=== PATIENT | female | born 1965 | race Caucasian/White ===

== ENCOUNTER → 2017-05-10 | Outpatient (CLI) | payer MEDICARE, OTHER ==
--- NOTE | 2017-05-10 12:52 | XR ---
EXAMINATION TYPE: XR shoulder limited LT DATE OF EXAM: 05/10/2017 COMPARISON: NONE HISTORY: Pain TECHNIQUE: Two views are submitted. FINDINGS: The osseous structures are intact. There is no acute fracture or dislocation. Mild arthropathy of th e AC joint.. IMPRESSION: 1. No acute process.
== END | disposition home or self-care (01) ==
LOC: RADXRMAIN 12:20
PROVIDERS: ATTEND Family Medicine
DX: M75.102 Unspecified rotator cuff tear or rupture of left shoulder, not specified as traumatic (principal)

== ENCOUNTER → 2017-06-12 | Outpatient (CLI) | payer MEDICARE, OTHER ==
--- NOTE | 2017-06-12 12:58 | MR ---
EXAMINATION TYPE: MR shoulder LT wo con DATE OF EXAM: 06/12/2017 COMPARISON: Plain film 05/10/2017 HISTORY: Left shoulder pain TECHNIQUE: Multiplanar, multisequence imaging of the left shoulder is performed without contrast. FINDINGS: Rotator Cuff: There is a rotator cuff tear, supraspinatus tendon shows retraction the level of the ac romioclavicular joint, the tendon is attenuated, infraspinatus tendon is also somewhat attenuated per ipherally with abnormal increased signal present, possible partial tear. Acromioclavicular Joint: Acromioclavicular joint arthropathy changes present. Glenohumeral Joint: Intact Labrum: There is some increased signal present within the acetabular labrum seen best on coronal imag e 14 superiorly. Biceps Tendon: Fluid signal is present along the long head of biceps tendon which shows a normal posi tion. Bone marrow signal: No focal abnormal marrow signal is appreciated. Other: There is an acromial spur distally and also at the proximal aspect of the acromion causing mas s effect on the supraspinatus tendon. There is fluid in the subacromial subdeltoid bursa, subscapular is tendon, there is a small joint effusion. IMPRESSION: Rotator cuff tear. Correlate for impingement. Difficult to exclude a SLAP lesion. Additional findings above.
== END | disposition home or self-care (01) ==
LOC: RADMRIMAIN 11:45
PROVIDERS: ATTEND Family Medicine
DX: M75.102 Unspecified rotator cuff tear or rupture of left shoulder, not specified as traumatic (principal); M12.812 Other specific arthropathies, not elsewhere classified, left shoulder; R22.32 Localized swelling, mass and lump, left upper limb

== ENCOUNTER → 2017-06-17 | Outpatient (CLI) | payer MEDICARE, OTHER ==
--- NOTE | 2017-06-19 09:04 | MM ---
Reason for exam: screening (asymptomatic). Last mammogram was performed 1 year and 4 months ago. Physical Findings: A clinical breast exam by your physician is recommended on an annual basis and results should be correlated with mammographic findings. MG 3D Screening Mammo W/Cad Bilateral CC and MLO view(s) were taken. Prior study comparison: February 03, 2016, bilateral MG 3d screening mammo w/cad. August 03, 2013, bilateral MG screening mammo w CAD. There are scattered fibroglandular densities. Finding: There are typically benign round, diffuse/scattered calcifications in both breasts. No significant changes in finding since February 03, 2016 and August 03, 2013. ASSESSMENT: Benign, BI-RAD 2 RECOMMENDATION: Routine screening mammogram of both breasts in 1 year.
== END | disposition home or self-care (01) ==
LOC: RADMAMWWP 12:39
PROVIDERS: ATTEND Family Medicine
DX: Z12.31 Encounter for screening mammogram for malignant neoplasm of breast (principal)
CPT/HCPCS: 77063; 77067

== ENCOUNTER 2017-08-01 05:46 | Day surgery (SDC) | payer MEDICARE, OTHER ==
[2017-07-29 13:50] VITALS: BMI 34.9
--- NOTE | 2017-07-31 16:17 | HP ---
HISTORY AND PHYSICAL DATE OF SURGERY: 08/01/2017 Zoya Momin is a 51-year-old patient seen with progressive left shoulder pain. We discussed treatment options and she elected to proceed with left shoulder arthroscopy. Consent regarding procedure was obtained. Medical clearance was provided by Dr. Bose. PAST MEDICAL HISTORY: 1. Hypertension. 2. Imh-nwohydo-whgpaivim diabetes. 3. Hyperlipidemia. 4. Gastroesophageal reflux disease. PAST SURGICAL HISTORY: Left knee arthroscopy. DAILY MEDICATIONS: 1. Lexapro. 2. Lisinopril. 3. Simvastatin. 4. Wellbutrin. 5. Metformin. 6. Nexium. ALLERGIES: IBUPROFEN. SOCIAL HISTORY: Patient denies current tobacco use. PHYSICAL EVALUATION OF THE LEFT SHOULDER: Flexion is 90 degrees, abduction 70 degrees. External rotation is 20 degrees with pain and weakness. There is tenderness along the anterolateral acromion at the rotator cuff insertion site. Impingement sign is positive at 90 degrees. Distal neurovascular exam is intact. Drop-arm sign is positive. IMAGING: X-rays of the left shoulder revealed a type 2 anterior acromion, acromioclavicular joint osteoarthritis and cystic changes of the greater tuberosity. MRI of the left shoulder revealed a retracted rotator cuff tendon tear. IMPRESSION: 1. Left shoulder impingement with rotator cuff tear. 2. Left shoulder acromioclavicular joint osteoarthritis. 3. Hypertension. 4. Hyperlipidemia. 5. Qcq-mvzgruk-jsamxarrk diabetes. PLAN: Left shoulder arthroscopy, subacromial decompression, probable arthroscopic rotator cuff repair, possible Bert procedure and debridement. MMODL / IJN: [id number] /
[~2017-08-01 05:46] MED LIST: LACTATED RINGERS 1,000 ML IV SCH; LIDOCAINE 1% 20 ML VIAL (10MG/ML) FOR IV START INTRADERMA PRN; ceFAZolin IN SWFI 2 GM/20 ML SYRINGE IVP ONE
[2017-08-01] MEDS ORDERED: DEXAMETHASONE SOD PHOSPHATE 10 MG/ML 1 ML VIAL IV ONE (05:48)
[2017-08-01] MEDS ORDERED: ONDANSETRON 4 MG/2 ML VIAL IVP ONE (05:48)
[2017-08-01] MEDS ORDERED: LACTATED RINGERS 1,000 ML IV SCH (05:48)
[2017-08-01] MEDS ORDERED: MIDAZOLAM 2 MG/2 ML VIAL IV PRN (05:48)
[2017-08-01] MEDS ORDERED: MORPHINE SULFATE 4 MG/ML SYRINGE IV PRN (05:48)
[2017-08-01 07:11] LABS: Glucose,Whole Blood 164 mg/dL (75-99)
--- NOTE | 2017-08-01 07:13 | P.ONQ ---
Anesthesiology Proc Note - PNB - Peripheral Nerve Block Performed Left Interscalene Single Time Out Performed: Yes (0653) Procedure Start Time: 07:00 Procedure Stop Time: 07:10 Indication: Acute Post-Operative Pain, Dx/Pain Location (Left Shoulder Pain), Requested by physician Sedation Type: Awake Preparation: Sterile Prep Position: Supine Catheter: None Needle Types: On-Q Needle Size: 50mm (2") Technique: Ultrasound Injectate: 0.5% Ropivacaine (see comment for volume) (30 ml) Blood Aspirated: No Pain Paresthesia on Injection Noted: No Resistance on Injection: Normal Events: Uneventful and Well Tolerated
[2017-08-01] MEDS ORDERED: MIDAZOLAM 2 MG/2 ML VIAL ONE (07:25)
[2017-08-01] MEDS ORDERED: ROPIVACAINE 5 MG/ML 30 ML VIAL ONE (07:25)
[2017-08-01] MEDS ORDERED: LIDOCAINE 2%-EPI 1:100,000 20 ML VIAL ONE (07:25)
[2017-08-01] MEDS ORDERED: ePHEDrine SULFATE/0.9% NACL/PF 50 MG/5 ML SYRINGE IV ONE (07:25)
[2017-08-01] MEDS ORDERED: SUCCINYLCHOLINE CHLORIDE 100 MG/5 ML SYR IV ONE (07:25)
[2017-08-01] MEDS ORDERED: fentaNYL (PF) 50 MCG/ML 2 ML AMP ONE (07:25)
[2017-08-01] MEDS ORDERED: LIDOCAINE 1% INJ 10MG/ML (20 ML MDV) ONE (07:25)
[2017-08-01] MEDS ORDERED: PROPOFOL 10 MG/ML 20 ML VIAL IV ONE (07:25)
[2017-08-01] MEDS ORDERED: PHENYLEPHRINE-0.9% NACL SYG 1 MG/10 ML SYRINGE ONE (07:25)
[2017-08-01] MEDS ORDERED: LACTATED RINGERS 1,000 ML IV ONE ×2 (08:38→10:07)
--- NOTE | 2017-08-01 09:35 | P.OP ---
Date of Procedure: 08/01/17 Preoperative Diagnosis: Left shoulder impingement Postoperative Diagnosis: 1. Left shoulder rotator cuff tear 2. Left shoulder impingement 3. Left shoulder partial long head biceps tendon tear 4. Left shoulder superior labral tear Procedure(s) Performed: 1. Left shoulder arthroscopic rotator cuff repair 2. Left shoulder arthroscopic subacromial decompression 3. Left shoulder arthroscopic biceps tenotomy 4. Left shoulder arthroscopic debridement labral tear Implants: 5-Arthrex anchors Anesthesia: GETA, regional (Interscalene block) Surgeon: Catarino Alexandre Estimated Blood Loss (ml): 15 Pathology: none sent Condition: stable Disposition: PACU Indications for Procedure: 51-year-old patient seen with progressive left shoulder pain. After treatment options were discussed, she elected to proceed with arthroscopy. Operative Findings: See description of procedure Description of Procedure: Patient underwent a shoulder block by department of anesthesia. The patient was then taken to the operative suite. The patient underwent a general anesthetic by the department of anesthesia. The patient was placed into a lateral position and secured. There was appropriate padding of the bony prominence. Left shoulder was then prepped and draped in normal sterile orthopedic fashion. We placed the extremity in 10 pounds of longitudinal traction. A posterior incision was now made for a posterior working portal site. The trocar and cannula were inserted into the glenohumeral joint. Arthroscopy was initiated. Spinal needle was now inserted anteriorly, to ascertain the anterior working portal site. An incision was now made in that area, a trocar was inserted followed by a probe. There was some superficial tearing of the superior labrum. There was partial tearing of long head biceps tendon. Her was grade 1/2 chondromalacia of the glenoid and grade 1 chondral malacia changes of the humeral head with no osteochondral tears. We noted a very large rotator cuff tear visualized from glenohumeral side. I debrided that superficial labral tear down to stable tissue. I performed an arthroscopic biceps tenotomy. The residual labrum was stable. Instruments now removed from the glenohumeral joint. Utilizing the posterior working portal site, the trocar and cannula were inserted into the subacromial space. Arthroscopy initiated. I made an incision 2 fingerbreadths lateral to the acromion. I introduced my trocar followed by my ArthroCare ablator. I now began ablating thick subacromial bursal tissue, which exposed the undersurface of the anterior acromion. This was diminished subacromial space. There was a very prominent anterior acromion. A motorized bur was introduced and a subacromial decompression was performed. I also excised some osteophytes off the inferior aspect of the distal clavicle. The AC joint was visualized and noted to be mildly to moderately arthritic, not enough toward a Bert procedure. I turned my attention to the rotator cuff tear. There was about 3 cm in length and retracted about 1.5 cm. I was able heat treat puller the footprint. I debrided the margins getting down to stable tendon tissue. I abraded the footprint with a motorized bur. I created an child development instructor he portal site off the lateral acromion. I now introduced 2 medial anchors with 2 suturesfiber tape each. I now passed all 8 limbs of the fiber tape through good bites of rotator cuff tendon. We now crisscrossed the sutures and noted there was good be a couple of dogears. I passed 3 fiber links to address those redundant areas of rotator cuff tendon tissue. We now crisscrossed the sutures and introduced 2 lateral anchors compressing the atenolol footprint nicely. I introduced 1 lateral anchor to pull those residual redundant areas of tissue down as well. All residual suture limbs were clipped. We had a good stable repair with good compression of the tendon along the entire footprint. I injected 1 mL of Renue intra-articular. Instruments now removed from the portal sites. All portal sites were approximated with nylon suture. Sterile dressings were applied followed by a shoulder immobilizer. 5 Arthrex SwiveLock anchors were utilized as implants. The patient was awakened, transferred to a bed, and taken to recovery in stable condition.
[2017-08-01 09:38] VITALS: TEMP 97.7
[2017-08-01 10:00] VITALS: RESP 16
[2017-08-01 10:33] VITALS: BP 117/68; PULSE 114
== END 2017-08-01 11:04 | disposition home or self-care (01) ==
LOC: OR 05:46
PROVIDERS: ATTEND Orthopaedic Surgery
DX: M75.42 Impingement syndrome of left shoulder (principal); M19.012 Primary osteoarthritis, left shoulder; I10 Essential (primary) hypertension; E78.5 Hyperlipidemia, unspecified; E11.9 Type 2 diabetes mellitus without complications; M75.102 Unspecified rotator cuff tear or rupture of left shoulder, not specified as traumatic; S43.492A Other sprain of left shoulder joint, initial encounter; S46.112A Strain of muscle, fascia and tendon of long head of biceps, left arm, initial encounter; M94.212 Chondromalacia, left shoulder; F32.9 Major depressive disorder, single episode, unspecified; K21.9 Gastro-esophageal reflux disease without esophagitis; Z79.84 Long term (current) use of oral hypoglycemic drugs; Z88.6 Allergy status to analgesic agent; Z79.899 Other long term (current) drug therapy
CPT/HCPCS: 81025; 29826; 29827; 29822; 64415; C1713 ×3; C1894; C1765; J2250; J1100; J2405; J2001; J3010; J2795; J2370; J0330; J2704; J0690

== ENCOUNTER → 2018-01-17 | Outpatient (CLI) | payer MEDICARE, OTHER | LOC: LABWHC1 12:43 | PROVIDERS: ATTEND Family Medicine | DX: D68.52 Prothrombin gene mutation (principal) | CPT/HCPCS: 36415; 83090 ==

== ENCOUNTER → 2018-08-26 | Outpatient (CLI) | payer MEDICARE, OTHER ==
--- NOTE | 2018-08-27 13:25 | MM ---
Reason for exam: screening (asymptomatic). Last mammogram was performed 1 year and 2 months ago. Physical Findings: A clinical breast exam by your physician is recommended on an annual basis and results should be correlated with mammographic findings. MG 3D Screening Mammo W/Cad Bilateral CC and MLO view(s) were taken. Prior study comparison: June 17, 2017, bilateral MG 3d screening mammo w/cad. February 03, 2016, bilateral MG 3d screening mammo w/cad. The breast tissue is heterogeneously dense. This may lower the sensitivity of mammography. Finding: There are typically benign calcifications in both breasts. No suspicious abnormality. No significant new finding when compared to prior studies. ASSESSMENT: Benign, BI-RAD 2 RECOMMENDATION: Routine screening mammogram of both breasts in 1 year.
== END | disposition home or self-care (01) ==
LOC: RADMAMWWP 09:44
PROVIDERS: ATTEND Family Medicine
DX: Z12.31 Encounter for screening mammogram for malignant neoplasm of breast (principal)
CPT/HCPCS: 77063; 77067

== ENCOUNTER → 2018-09-16 | Outpatient (CLI) | payer MEDICARE, OTHER ==
--- NOTE | 2018-09-16 14:55 | US ---
EXAMINATION TYPE: US pelvis complete transvag DATE OF EXAM: 09/16/2018 COMPARISON: 90 191 CLINICAL HISTORY: N92.6 Irregular Mensies. Heavier, irregular cycles, known fibroid, A1, c-sectio n TECHNIQUE: TA/TV. Transabdominal sonographic images of the pelvis were acquired. Transvaginal sono graphic images were medically necessary to better assess the following anatomy: all of pelvis Date of LMP: ?July EXAM MEASUREMENTS: Uterus: 8.8 x 6.1 x 5.4 cm Endometrial Stripe: 0.4 cm Right Ovary: 2.2 x 1.5 x 1.7 cm Left Ovary: 1.7 x 1.3 x 1.3 cm 1. Uterus: Retroverted large fundal fibroid = 6.0 x 5.5 x 5.3cm 2. Endometrium: wnl 3. Right Ovary: wnl 4. Left Ovary: wnl 5. Bilateral Adnexa: wnl 6. Posterior cul-de-sac: wnl IMPRESSION: 1. There is a 6 cm uterine fundal mass most typical of a fibroid. Similar in appearance to the prior exam.
== END | disposition home or self-care (01) ==
LOC: RADUSWWP 14:10
PROVIDERS: ATTEND Family Medicine
DX: D25.9 Leiomyoma of uterus, unspecified (principal)
CPT/HCPCS: 76830; 76856

== ENCOUNTER → 2020-09-06 | Outpatient (CLI) | payer MEDICARE, OTHER ==
--- NOTE | 2020-09-06 16:25 | XR ---
Right knee HISTORY:M25.561 3 views of the right knee There is some marginal spurring, remodeling at the medial compartment. Bone mineralization and alignm ent are maintained. Suprapatellar increased density may be indicative of a small joint effusion. Ther e is spurring at the patellofemoral joint. No fracture or dislocation. IMPRESSION: Osteoarthritis.
== END | disposition home or self-care (01) ==
LOC: RADXRMAIN 15:22
PROVIDERS: ATTEND Family Medicine
DX: M17.11 Unilateral primary osteoarthritis, right knee (principal)

== ENCOUNTER → 2020-10-04 | Outpatient (CLI) | payer MEDICARE, OTHER ==
--- NOTE | 2020-10-05 10:51 | MM ---
Reason for exam: screening (asymptomatic). Last mammogram was performed 2 years and 1 month ago. History: Patient is postmenopausal. Physical Findings: A clinical breast exam by your physician is recommended on an annual basis and results should be correlated with mammographic findings. MG 3D Screening Mammo W/Cad Bilateral CC and MLO view(s) were taken. Prior study comparison: August 26, 2018, bilateral MG 3d screening mammo w/cad. June 17, 2017, bilateral MG 3d screening mammo w/cad. The breast tissue is heterogeneously dense. This may lower the sensitivity of mammography. Stable benign calcifications. There is no discrete abnormality. No significant changes when compared with prior studies. ASSESSMENT: Benign, BI-RAD 2 RECOMMENDATION: Routine screening mammogram of both breasts in 1 year.
== END | disposition home or self-care (01) ==
LOC: RADMAMWWP 13:59
PROVIDERS: ATTEND Family Medicine
DX: Z12.31 Encounter for screening mammogram for malignant neoplasm of breast (principal); Z78.0 Asymptomatic menopausal state
CPT/HCPCS: 77063; 77067

== ENCOUNTER → 2021-07-31 | Outpatient (CLI) | payer MEDICARE, OTHER | END | disposition home or self-care (01) | LOC: LABPAT 09:32 | PROVIDERS: ATTEND Orthopaedic Surgery | DX: Z01.812 Encounter for preprocedural laboratory examination (principal); M17.11 Unilateral primary osteoarthritis, right knee | CPT/HCPCS: 87070 ==

== ENCOUNTER 2021-08-07 07:45 | Day surgery (SDC) | payer MEDICARE, OTHER ==
[2021-08-03 14:18] VITALS: BMI 31.8
--- NOTE | 2021-08-06 13:52 | HP ---
HISTORY AND PHYSICAL DATE OF SURGERY: 08/07/2021 Zoya Cowan is a 55-year-old patient seen with symptomatic right knee osteoarthritis. We discussed options for treatment. She elected to proceed with right total knee arthroplasty. Consent was obtained. PAST MEDICAL HISTORY: Hypertension, hyperlipidemia, nmc-uahtsvo-ntodaswwp diabetes. PAST SURGICAL HISTORY: Knee arthroscopy, tonsillectomy, shoulder arthroscopy, section. DAILY MEDICATIONS: Lexapro, lisinopril/hydrochlorothiazide, simvastatin, metformin, aspirin, Nexium. ALLERGIES: IBUPROFEN. SOCIAL HISTORY: She denies tobacco use. PHYSICAL EVALUATION OF THE RIGHT KNEE: Her range of motion is negative 1/2 to 115 degrees. Mild effusion. Tenderness, medial joint line. Crepitus, medial and patellofemoral compartments with range of motion. Pain with patellofemoral compression. Ligaments stable. Hip rotation without pain. Distal neurovascular exam intact. Right knee radiographs reveal severe osteoarthritic changes. IMPRESSION: 1. Right knee osteoarthritis. 2. Hypertension. 3. Hyperlipidemia. 4. Eyn-ocqudps-jbnmyurce diabetes. PLAN: Right total knee arthroplasty. MMODL / IJN: [id number] /
[~2021-08-07 07:45] MED LIST changes: +ACETAMINOPHEN TAB 500 MG TAB PO PRN; +HYDROmorphone 0.5 MG/0.5 ML SYRINGE IVP PRN; +LIDOCAINE 1% (10MG/ML) FOR IV START INTRADERMA PRN; -LIDOCAINE 1% 20 ML VIAL (10MG/ML) FOR IV START INTRADERMA PRN; +MELOXICAM 7.5 MG TAB PO PRN; +ONDANSETRON 4 MG/2 ML VIAL IVP ONE; +TRANEXAMIC ACID IN NACL,ISO-OS 1,000 MG in SALINE 1 100ML.BAG IVPB PRN; -ceFAZolin IN SWFI 2 GM/20 ML SYRINGE IVP ONE
[2021-08-07 09:08] LABS: Glucose,Whole Blood 109 mg/dL (75-99)
[2021-08-07] MEDS ORDERED: DEXAMETHASONE SOD PHOSPHATE 4 MG/ML 1 ML VIAL IV ONE (09:17)
[2021-08-07] MEDS ORDERED: fentaNYL (PF) 50 MCG/ML 2 ML AMP IV ONE ×2 (09:37→09:42)
[2021-08-07] MEDS ORDERED: MIDAZOLAM 2 MG/2 ML VIAL IV ONE (09:37)
[2021-08-07] MEDS ORDERED: PHENYLEPHRINE-0.9% NACL SYG 1,000 MCG/10 ML SYRINGE ONE (10:00)
[2021-08-07] MEDS ORDERED: GLYCOPYRROLATE 0.2 MG/ML 2 ML VIAL ONE (10:00)
[2021-08-07] MEDS ORDERED: ROPIVACAINE 5 MG/ML 30 ML VIAL ONE (10:00)
[2021-08-07] MEDS ORDERED: LIDOCAINE 2% INJ 20 MG/ML (2 ML VIAL) ONE (10:00)
[2021-08-07] MEDS ORDERED: SUCCINYLCHOLINE CHLORIDE 100 MG/5 ML SYR IV ONE (10:00)
[2021-08-07] MEDS ORDERED: NEOSTIGMINE 1 MG/ML 10 ML VIAL ONE (10:00)
[2021-08-07] MEDS ORDERED: SODIUM CHLORIDE 0.9% (PF) 10 ML VIAL ONE (10:00)
[2021-08-07] MEDS ORDERED: fentaNYL (PF) 50 MCG/ML 2 ML AMP ONE (10:00)
[2021-08-07] MEDS ORDERED: TRANEXAMIC ACID IN NACL,ISO-OS 1,000 MG/100 ML BAG ONE (10:00)
[2021-08-07] MEDS ORDERED: PROPOFOL 10 MG/ML 20 ML VIAL IV ONE (10:00)
[2021-08-07] MEDS ORDERED: ceFAZolin 1,000 MG in SODIUM CHLORIDE 0.9% 1,000 ML IRRIGATION ONE (10:04)
[2021-08-07] MEDS ORDERED: HYDROcodone/APAP 7.5-325MG 1 EACH TAB PO PRN (11:49)
[2021-08-07] MEDS ORDERED: NALOXONE 0.4 MG/ML 1 ML VIAL IV PRN (11:49)
[2021-08-07] MEDS ORDERED: LACTATED RINGERS 1,000 ML IV ONE ×2 (11:49→11:58)
[2021-08-07] MEDS ORDERED: HYDROcodone/APAP 5-325MG 1 EACH TAB PO PRN (11:49)
[2021-08-07] MEDS ORDERED: ONDANSETRON 4 MG/2 ML VIAL IVP PRN (11:49)
[2021-08-07] MEDS ORDERED: HYDROmorphone 1 MG/ML 1 ML SYRINGE IVP PRN (11:49)
[2021-08-07] MEDS ORDERED: HYDROmorphone 0.5 MG/0.5 ML SYRINGE IVP PRN ×2 (11:49)
--- NOTE | 2021-08-07 11:49 | P.OP ---
Date of Procedure: 08/07/21 Preoperative Diagnosis: Right knee osteoarthritis Postoperative Diagnosis: Right knee osteoarthritis Procedure(s) Performed: Right total knee arthroplasty Implants: 1. Depuy attune size 3 narrow right cruciate retaining cemented femur 2. Depuy attune size 3 fixed bearing cemented tibial baseplate 3. Depuy attune size 3 fixed bearing cruciate retaining 8 mm polyethylene tibial insert 4. Depuy attune 32 mm all polyethylene cemented patella Anesthesia: GETA, regional (Adductor canal catheter, IPack block) Surgeon: Catarino Alexander Bulb Weeder #1: Nikolay Clark Estimated Blood Loss (ml): 45 Pathology: other (Bone) Condition: stable Disposition: PACU Indications for Procedure: 55-year-old patient seen with symptomatic right knee osteoarthritis. After treatment options were discussed, she elected to proceed with right total knee arthroplasty. Operative Findings: see description of procedure Description of Procedure: Patient was taken to the operative suite after having an adductor canal catheter placed by the department of anesthesia as well as an Ipack block for postoperative pain management. Patient underwent a general anesthetic by the department of anesthesia. Patient was given preoperative IV intake antibiotics and TXA. A well-padded tourniquet was placed about the right lower extremity. The lower extremity was then prepped and draped in the normal sterile orthopedic fashion. The extremity was elevated, a tourniquet was insufflated to 300. A standard anterior incision was made sharply through skin. Dissection was taken down through the subcutaneous soft tissues down to the extensor mechanism. A medial arthrotomy was performed, patella was everted and knee was flexed. There was advanced osteoarthritis noted. I introduced my distal intramedullary femoral drill. I then introduced the distal femoral cutting jig. Von CRAVEN secured the cutting jig with 2 pins. I held retractors in position while Von CRAVEN performed the distal femoral resection through the guide area we now removed her distal femoral cutting guide. We now placed our 4-in-1 femoral cutting block and positioned and it was secured with 2 pins by Von CRAVEN while I held the block in position. The distal femoral finishing was now completed. A proximal tibial cutting guide was positioned. I held the guide in the appropriate position with both hands well Von CRAVEN inserted stabilizing pins into the guide. Proximal tibial cut was made. We now placed a trial femoral component into position, along with an appropriate size tibial tray and insert. We now took the knee through range of motion and had full extension good flexion and good overall soft tissue balance noted. The patella was everted and stabilized with 2 towel clips held by Von CRAVEN while I performed a flush with patellar quad tendon utilizing a fresh sawblade. We templated the patella, appropriate drill holes were made. An appropriate trial patella was positioned, knee was taken through full range of motion with the patella tracking very nicely. The trial patella was removed. Drill holes were made through the femoral component. All trial components were removed after marking off the appropriate rotation of the tibia. Retractors were now positioned along the proximal tibia. An appropriate keel punch was made with the appropriate size tibial guide by myself on Von CRAVEN assisted by holding retractors. At this point appropriate size implants were chosen and opened. The joint was irrigated copiously with pulse lavage mechanical irrigation. The posterior capsule was infiltrated with local analgesic. The wound was irrigated with pulse lavage mechanical irrigation. We mixed antibiotic methylmethacrylate. We placed the knee into flexion. We placed multiple retractors assisted by Von CRAVEN to expose the proximal tibia. Once the methyl methacrylate was ready, the tibial component was cemented into place removing any excess methylmethacrylate form by both myself and Von CRAVEN. The femoral component was cemented into place removing the removing any excess methylmethacrylate performed by both myself and Von CRAVEN. We then inserted the appropriate size polyethylene tibial insert. We made sure that it was locked into position. We took the knee into full extension, and then back in a flexion making sure we had removed any excess methylmethacrylate. The patellar component was then cemented down and secured with clamp. Excess methylmethacrylate removed. We kept the knee in full extension, patellar clamp in position until methylmethacrylate had hardened. Once it had hardened the patellar clamp was removed. The knee was taken through full range of motion. The patella tracked nicely. There was good soft tissue balancing. The tourniquet was now released. Additional hemostasis was achieved via electrocautery. A second gram of TXA was given. The wound again was irrigated with pulse lavage mechanical irrigation. The superficial soft tissues were infiltrated local analgesic. The extensor mechanism was repaired with Vicryl. We checked the repair with range of motion and it was stable. The subcutaneous soft tissues were repaired with Vicryl in layers. The skin was approximated with pernio/Dermabond. Sterile dressings were applied followed by loose web roll and Jaiden bandage. The patient was transferred to a bed, and taken to recovery in stable and satisfactory condition. Von CRAVEN assisted with this complex procedure.
[2021-08-07] MEDS ORDERED: ROPIVACAINE 0.2%-NS ON-Q PUMP 2 MG/ML EACH MISCELLANE ONE (12:16)
[2021-08-07] MEDS ORDERED: HYDROmorphone 0.5 MG/0.5 ML SYRINGE IVP ONE ×2 (12:22→12:37)
[2021-08-07 12:30] LABS: Glucose,Whole Blood 158 mg/dL (75-99)
--- NOTE | 2021-08-07 12:43 | XR ---
Right knee Limited HISTORY: Postop knee arthroplasty 2 views of the right knee Patient is status post right knee arthroplasty. There is anatomic alignment. Lucencies present within the soft tissues consistent with postop state. There is soft tissue swelling. IMPRESSION: Orthopedic follow-up.
[2021-08-07 13:17] VITALS: RESP 18
--- NOTE | 2021-08-07 13:38 | P.ANPRN ---
Procedure Note - Anesthesia - Nerve Block Performed Right Adductor Canal Infusion Time Out Performed: Yes (0936) Date of Procedure: 08/07/21 Procedure Start Time: :37 Procedure Stop Time: :43 Location of Patient: PreOp Indication: Acute Post-Operative Pain, Requested by Surgeon Specifically requested for management of pain by DrCallie: Catarino Alexander Sedation Type: Sedate with meaningful contact maintained Preparation: Sterile Prep, Sterile Dressing Position: Supine Catheter Depth at Skin (cm): 8 Catheter: Indwelling Needle Types: Pajunk Needle Gauge: 21 Ultrasound used to visualize needle placement: Yes Ultrasound used to observe medication spread: Yes Injectate: 0.5% Ropivacaine (see comment for volume) (15cc + 5cc nacl) Blood Aspirated: No Pain Paresthesia on Injection Noted: No Resistance on Injection: Normal Image Stored and Saved: Yes Events: Uneventful and Well Tolerated
--- NOTE | 2021-08-07 13:39 | P.ANPRN ---
Procedure Note - Anesthesia - Nerve Block Performed Right iPack Single Time Out Performed: Yes (0936) Date of Procedure: 08/07/21 Procedure Start Time: :44 Procedure Stop Time: :46 Location of Patient: PreOp Indication: Acute Post-Operative Pain, Requested by Surgeon Specifically requested for management of pain by DrCallie: Catarino Alexander Sedation Type: Sedate with meaningful contact maintained Preparation: Sterile Prep Position: Supine Catheter: None Needle Types: Pajunk Needle Gauge: 21 Ultrasound used to visualize needle placement: Yes Ultrasound used to observe medication spread: Yes Injectate: 0.5% Ropivacaine (see comment for volume) (15cc + 5cc nacl) Blood Aspirated: No Pain Paresthesia on Injection Noted: No Resistance on Injection: Normal Image Stored and Saved: Yes Events: Uneventful and Well Tolerated
[2021-08-07 14:11] VITALS: BP 95/53; PULSE 95
== END 2021-08-07 16:46 | disposition home health service (06) ==
LOC: OR 07:45
PROVIDERS: ATTEND Orthopaedic Surgery
DX: M17.11 Unilateral primary osteoarthritis, right knee (principal); I10 Essential (primary) hypertension; E78.5 Hyperlipidemia, unspecified; E11.9 Type 2 diabetes mellitus without complications; E78.00 Pure hypercholesterolemia, unspecified; E72.12 Methylenetetrahydrofolate reductase deficiency; F41.9 Anxiety disorder, unspecified; F32.A Depression, unspecified; Z86.718 Personal history of other venous thrombosis and embolism; K21.9 Gastro-esophageal reflux disease without esophagitis; Z79.899 Other long term (current) drug therapy; Z79.84 Long term (current) use of oral hypoglycemic drugs; Z79.82 Long term (current) use of aspirin; Z88.6 Allergy status to analgesic agent; Z88.8 Allergy status to other drugs, medicaments and biological substances
CPT/HCPCS: 27447; 97110; 97161; 64999; 64448; 76942; 88300; 73560; C1776; C1713 ×2; J2250; J1100; J2710; J0690 ×2; J2405; J3010; J2795 ×2; J2370; J0330; J2704; J1170; J2001

== ENCOUNTER → 2021-10-25 | Outpatient (CLI) | payer MEDICARE, OTHER ==
--- NOTE | 2021-10-27 15:50 | MM ---
Reason for Exam: Screening (asymptomatic). Last mammogram was performed 1 year(s) and 1 month(s) ago. Patient History: Menarche at age 9. First Full-Term at age 15. Postmenopausal. Patient has history of breast feeding. Risk Values: Tata 5 year model risk: 1.1%. NCI Lifetime model risk: 6.1%. Prior Study Comparison: 06/17/2017 Bilateral Screening Mammogram, [facility]. 08/26/2018 Bilateral Screening Mammogram, [facility]. 10/04/2020 Bilateral Screening Mammogram, [facility]. Tissue Density: There are scattered fibroglandular densities. Findings: Analyzed By CAD. Benign oil cyst and vascular calcifications on both sides. There is no suspicious group of microcalcifications or new suspicious mass in either breast. Overall Assessment: Benign, BI-RAD 2 Management: Screening Mammogram of both breasts in 1 year. 1. Patient should continue monthly self breast exams. 2. A clinical breast exam by your physician is recommended on an annual basis. 3. This exam should not preclude additional follow-up of suspicious palpable abnormalities. Electronically signed and approved by: Lou Selby M.D. Radiologist
== END | disposition home or self-care (01) ==
LOC: RADMAMWWP 15:42
PROVIDERS: ATTEND Family Medicine
DX: Z12.31 Encounter for screening mammogram for malignant neoplasm of breast (principal); Z78.0 Asymptomatic menopausal state
CPT/HCPCS: 77063; 77067

== ENCOUNTER 2022-08-01 07:59 | Day surgery (SDC) | payer MEDICARE, OTHER ==
[2022-07-30 12:54] VITALS: BMI 30.9
[2022-08-01] MEDS ORDERED: LACTATED RINGERS 1,000 ML IV SCH (08:22)
[2022-08-01] MEDS ORDERED: LIDOCAINE 1% (10MG/ML) FOR IV START INTRADERMA PRN (08:22)
[2022-08-01 08:28] VITALS: TEMP 98.3
[2022-08-01] MEDS ORDERED: LACTATED RINGERS 1,000 ML IV ONE (08:28)
[2022-08-01 08:35] LABS: Glucose,Whole Blood 106 mg/dL (70-110)
[2022-08-01] MEDS ORDERED: PROPOFOL 10 MG/ML 20 ML VIAL IV ONE (09:27)
--- NOTE | 2022-08-01 09:43 | P.PCN ---
Date of Procedure: 08/01/22 Procedure(s) Performed: BRIEF HISTORY: Patient is a 56-year-old pleasant female scheduled for an elective colonoscopy as a part of screening for colon cancer. PROCEDURE PERFORMED: Colonoscopy. PREOPERATIVE DIAGNOSIS: Screening for colon cancer. IV sedation per Anesthesia. PROCEDURE: After informed consent was obtained, the patient, was brought into the endoscopy unit. IV sedation was administered by Anesthesia under continuous monitoring. Digital rectal examination was normal. Initially the Olympus CF-160 flexible video colonoscope was then inserted in the rectum, gradually advanced into the cecum without any difficulty. Careful examination was performed as the scope was gradually being withdrawn. Ileocecal valve and the appendiceal orifice were visualized and appeared normal. Prep was excellent. Mucosa of the cecum, ascending colon, transverse colon, descending colon, sigmoid colon, and rectum appeared normal. Retroflexion was performed in the rectum and no lesions were seen. The patient tolerated the procedure well. IMPRESSION: Normal-appearing colon from rectum to cecum with no evidence of colorectal neoplasia. RECOMMENDATIONS: Findings of this examination were discussed with the patient as well as a family. She was advised to have a repeat screening colonoscopy in 10 years.
[2022-08-01 10:10] VITALS: BP 117/78; PULSE 73; RESP 15
== END 2022-08-01 10:15 | disposition home or self-care (01) ==
LOC: ORWHC2ENDO 07:59
PROVIDERS: ATTEND Internal Medicine Gastroenterology
DX: Z12.11 Encounter for screening for malignant neoplasm of colon (principal); I10 Essential (primary) hypertension; E78.5 Hyperlipidemia, unspecified; E11.9 Type 2 diabetes mellitus without complications; F32.A Depression, unspecified; Z79.899 Other long term (current) drug therapy; Z98.891 History of uterine scar from previous surgery; Z98.890 Other specified postprocedural states
CPT/HCPCS: J2704; G0121; 45378

== ENCOUNTER → 2022-11-07 | Outpatient (CLI) | payer MEDICARE, OTHER ==
--- NOTE | 2022-11-08 08:45 | MM ---
Reason for Exam: Screening (asymptomatic). Last screening mammogram was performed 12 month(s) ago. Patient History: Menarche at age 9. First Full-Term at age 15. Postmenopausal. Patient has history of breast feeding. Risk Values: Tata 5 year model risk: 1.1%. NCI Lifetime model risk: 6.0%. Prior Study Comparison: 08/26/2018 Bilateral Screening Mammogram, [facility]. 10/04/2020 Bilateral Screening Mammogram, [facility]. 10/25/2021 Bilateral MG 3D screening mammo w/cad, [facility]. Tissue Density: The breast tissue is heterogeneously dense. This may lower the sensitivity of mammography. Findings: Analyzed By CAD. There is no suspicious group of microcalcifications or new suspicious mass in either breast. Overall Assessment: Benign, BI-RAD 2 Management: Screening Mammogram of both breasts in 1 year. . Patient should continue monthly self-breast exams. A clinical breast exam by your physician is recommended on an annual basis. This exam should not preclude additional follow-up of suspicious palpable abnormalities. Note on Tata scores and lifetime risk: 1. A Tata score greater than 3% is considered moderate risk. If this is the case, consider specialist referral to assess eligibility for a risk reducing agent. 2. If overall lifetime risk for the development of breast cancer is 20% or higher, the patient may qualify for future screening with alternating mammogram and breast MRI. Electronically signed and approved by: Bhavesh Gil M.D. Radiologis
== END | disposition home or self-care (01) ==
LOC: RADMAMWWP 07:25
PROVIDERS: ATTEND Family Medicine
DX: Z12.31 Encounter for screening mammogram for malignant neoplasm of breast (principal); Z78.0 Asymptomatic menopausal state
CPT/HCPCS: 77063; 77067

== ENCOUNTER → 2023-09-24 | Outpatient (CLI) | payer MEDICARE ==
--- NOTE | 2023-10-01 23:17 | MR ---
EXAMINATION TYPE: MR knee LT wo con DATE OF EXAM: 09/24/2023 COMPARISON: Outside left knee x-ray September 17, 2023 HISTORY: Left knee pain and swelling x1 month TECHNIQUE: Multiplanar, multisequence images of the knee is performed without IV contrast. FINDINGS: MEDIAL MENISCUS: Abnormal signal posterior horn medial meniscus somewhat globular in shape and extend s to articular surface involving the body. LATERAL MENISCUS: Anterior and posterior horns are intact without tear. CRUCIATE LIGAMENTS: The posterior cruciate ligament is intact and unremarkable. Nonvisualized ACL con sistent with complete tear COLLATERAL LIGAMENTS: The medial collateral ligament and lateral collateral ligament complex are inta ct and unremarkable. EXTENSOR MECHANISM: Visualized quadriceps and patellar tendons are intact. EFFUSION: Moderate to large size suprapatellar joint effusion. POPLITEAL CYST: No popliteal/maldonado cyst. TRICOMPARTMENT SPACES: Moderate spurring medial and lateral tibiofemoral compartments. Mild to modera te tricompartment joint space loss. CARTILAGE: Some cartilaginous loss medial tibiofemoral compartment. BONE MARROW SIGNAL: No focal abnormal marrow signal is appreciated. OTHER: No additional significant abnormality is appreciated. IMPRESSION: 1. Full-thickness tear posterior horn of medial meniscus extending into central body. 2. Complete ACL tear. 3. Moderate to large-size suprapatellar joint effusion. 4. Fairly moderate tricompartment degenerative changes are present as detailed above.
== END | disposition home or self-care (01) ==
LOC: RADMRIMAIN 18:27
PROVIDERS: ATTEND Orthopaedic Surgery
DX: S83.242A Other tear of medial meniscus, current injury, left knee, initial encounter (principal); M17.12 Unilateral primary osteoarthritis, left knee; M25.462 Effusion, left knee

== ENCOUNTER 2023-10-31 12:00 | Day surgery (SDC) | payer MEDICARE ==
[~2023-10-31 12:00] MED LIST changes: -ACETAMINOPHEN TAB 500 MG TAB PO PRN; +BUPIVACAINE (PF) 0.75% 30 ML VIAL ONE; +DEXAMETHASONE SOD PHOSPHATE 4 MG/ML 1 ML VIAL ONE; -HYDROmorphone 0.5 MG/0.5 ML SYRINGE IVP PRN; +LACTATED RINGERS 1,000 ML BAG ONE; -LACTATED RINGERS 1,000 ML IV SCH; -LIDOCAINE 1% (10MG/ML) FOR IV START INTRADERMA PRN; +LIDOCAINE 1% INJ 10MG/ML (20 ML MDV) ONE; -MELOXICAM 7.5 MG TAB PO PRN; +MIDAZOLAM 2 MG/2 ML VIAL ONE; -ONDANSETRON 4 MG/2 ML VIAL IVP ONE; +ONDANSETRON 4 MG/2 ML VIAL ONE; +PROPOFOL 10 MG/ML 20 ML VIAL IV ONE; +SUCCINYLCHOLINE CHLORIDE 200 MG/10 ML VIAL IV ONE; -TRANEXAMIC ACID IN NACL,ISO-OS 1,000 MG in SALINE 1 100ML.BAG IVPB PRN; +ePHEDrine 50 MG/ML 1 ML VIAL ONE; +fentaNYL (PF) 50 MCG/ML 2 ML AMP ONE
[2023-10-31] MEDS ORDERED: LABETALOL SYRINGE 5 MG/ML (4 ML SYR) ONE (13:08)
--- NOTE | 2023-11-08 15:54 | OP ---
OPERATIVE REPORT DATE OF SERVICE : 10/31/2023 PREOPERATIVE DIAGNOSIS: Internal derangement, left knee. POSTOPERATIVE DIAGNOSES: 1. Medial and lateral meniscal tears, left knee. 2. Grade 4 chondromalacia medial femoral condyle, left knee. 3. Reactive synovitis, medial, lateral, and suprapatellar compartments, left knee. 4. ACL tear, left knee. PROCEDURES PERFORMED: 1. Arthroscopic partial medial and lateral meniscectomy, left knee. 2. Arthroscopic microfracture, medial femoral condyle, left knee. 3. Arthroscopic partial synovectomy, medial, lateral, and suprapatellar compartments, left knee. 4. Arthroscopic debridement, ACL tear, left knee. ANESTHESIA: General. COMPLICATIONS: None. ESTIMATED BLOOD LOSS: 8 mL. The patient tolerated the procedure well. INDICATIONS FOR PROCEDURE: Zoya Momin is a 58-year-old patient, seen with progressive left knee pain. We discussed options regarding treatment. She elected to proceed with left knee arthroscopy. Consent was obtained regarding the procedure. DESCRIPTION OF PROCEDURE: The patient was taken to the operative suite. She underwent a general anesthetic by the Department of Anesthesia. She received preoperative IV antibiotics. Her left lower extremity was placed in a well-padded arthroscopic leg dejesus. The left lower extremity was prepped and draped in normal sterile orthopedic fashion. A lateral parapatellar incision was made. Trocar was inserted. Arthroscopy was initiated. Suprapatellar pouch revealed thick reactive synovitis. Patellofemoral joint articular, congruent with grade 2 chondromalacia changes. No tears. No loose bodies. Scope was guided into the medial gutter. No loose bodies. Scope was guided into medial compartment. Medial parapatellar incision was made. Trocar was inserted, followed by a probe. There was a complex tear of the medial meniscus. There were grade 3/4 chondromalacia changes of the femoral condyle as well as the tibial plateau. There was thick reactive synovitis anteriorly. I performed a partial medial meniscectomy, getting down a stable meniscal tissue. Performed a chondroplasty of the medial femoral condyle, getting down to stable osteochondral tissue. I performed a partial synovectomy, decompressing the thick reactive synovitis. I did note areas of exposed bone along the femoral condyle and tibial plateau, both measuring over a centimeter. I introduced some microfracture awl, and I performed a microfracture to the area of exposed bone, medial femoral condyle, penetrating the bone with resultant bleeding at the microfracture site. The residual osteochondral surface was stable. The residual meniscus was stable. There was good decompression of the synovitis. The scope was then guided into the intercondylar notch. I noted a tear in the anterior cruciate ligament with residual fibers remaining. I introduced the motorized shaver and debrided out the torn ACL, I probed the PCL, it was stable. I guided the scope into the lateral compartment. There was a radial tear involving the midbody and anterior horns of the lateral meniscus. There were grade 2 chondromalacia changes. Lateral compartment with no tears. There was thick reactive synovitis anteriorly involving the lateral compartment. I performed a partial lateral meniscectomy, getting down to stable meniscal tissue. I performed a partial synovectomy, decompressing the reactive synovitis. The residual meniscus was probed and was found to be stable. There was good decompression of the reactive synovitis. The scope was now guided into the lateral gutter, no loose bodies. Scope was guided into the suprapatellar compartment. I introduced a motorized shaver and debrided out some piecemeal fragments of meniscus I encountered. I performed a partial synovectomy. The shaver was now removed. There was good decompression of the synovitis. I took one more look around the entire knee. No residual debris. Instruments were now removed from the knee. The portal sites were repaired with nylon suture. The joint was now infiltrated with 0.25% plain Marcaine. Sterile dressings were applied, followed by FREDY luna. The patient was now awakened, transferred to bed, then recovery in stable condition, having tolerated the procedure well. MMODL / IJN: [id number] /
--- NOTE | 2023-12-05 12:28 | HP ---
HISTORY AND PHYSICAL DATE OF SURGERY: 10/31/2023. HISTORY OF PRESENT ILLNESS: Zoya Cowan is a patient seen with progressive left knee pain. We discussed options regarding treatment, status post left knee arthroscopy. Consents obtained. PAST MEDICAL HISTORY: Noncontributory. PAST SURGICAL HISTORY: Noncontributory. DAILY MEDICATIONS: As per chart. PHYSICAL EVALUATION OF THE LEFT KNEE: Range of motion is -1/220 degrees. Tenderness along the medial joint line. Positive medial Jeff's. Ligaments stable. Distal neurovascular exam is intact. IMPRESSION: Internal derangement of left knee with medial meniscal tear and partial ACL tear. PLAN: Left knee arthroscopy with partial medial meniscectomy and debridement, ACL tear. MMODL / IJN: [id number] /
== END 2023-10-31 14:17 ==
LOC: OR 12:00
PROVIDERS: ATTEND Orthopaedic Surgery
DX: S83.242A Other tear of medial meniscus, current injury, left knee, initial encounter (principal); S83.512A Sprain of anterior cruciate ligament of left knee, initial encounter; S83.282A Other tear of lateral meniscus, current injury, left knee, initial encounter; M22.42 Chondromalacia patellae, left knee; M65.161 Other infective (teno)synovitis, right knee; I10 Essential (primary) hypertension; E78.5 Hyperlipidemia, unspecified; E11.9 Type 2 diabetes mellitus without complications; K21.9 Gastro-esophageal reflux disease without esophagitis; Z79.84 Long term (current) use of oral hypoglycemic drugs; Z79.85 Long-term (current) use of injectable non-insulin antidiabetic drugs; Z79.899 Other long term (current) drug therapy; Z88.5 Allergy status to narcotic agent; Z88.8 Allergy status to other drugs, medicaments and biological substances; X58.XXXA Exposure to other specified factors, initial encounter

== ENCOUNTER → 2024-01-06 | Outpatient (CLI) | payer MEDICARE ==
--- NOTE | 2024-01-07 19:11 | MM ---
Reason for Exam: Screening (asymptomatic). Last mammogram was performed 1 year(s) and 2 month(s) ago. Patient History: Menarche at age 9. First Full-Term at age 15. Postmenopausal. Patient has history of breast feeding. Risk Values: Tata 5 year model risk: 1.1%. NCI Lifetime model risk: 5.8%. Prior Study Comparison: 02/03/2016 Bilateral Screening Mammogram, [facility]. 06/17/2017 Bilateral Screening Mammogram, [facility]. 08/26/2018 Bilateral Screening Mammogram, [facility]. 10/04/2020 Bilateral Screening Mammogram, [facility]. 10/25/2021 Bilateral MG 3D screening mammo w/cad, [facility]. 11/07/2022 Bilateral MG 3D screening mammo w/cad, [facility]. Tissue Density: There are scattered areas of fibroglandular density. Findings: Analyzed By CAD. Benign bilateral oil cyst and vascular calcifications are redemonstrated. There is no suspicious group of microcalcifications or new suspicious mass in either breast. Overall Assessment: Benign, BI-RAD 2 Management: Screening Mammogram of both breasts in 1 year. . Patient should continue monthly self-breast exams. A clinical breast exam by your physician is recommended on an annual basis. This exam should not preclude additional follow-up of suspicious palpable abnormalities. Note on Tata scores and lifetime risk: 1. A Tata score greater than 3% is considered moderate risk. If this is the case, consider specialist referral to assess eligibility for a risk reducing agent. 2. If overall lifetime risk for the development of breast cancer is 20% or higher, the patient may qualify for future screening with alternating mammogram and breast MRI. [facility], , 01/07/2024 7:08 PM. Electronically signed and approved by: Lou Selby M.D. Radiologist
== END | disposition home or self-care (01) ==
LOC: RADMAMWWP 09:33
PROVIDERS: ATTEND Family Medicine
DX: Z12.31 Encounter for screening mammogram for malignant neoplasm of breast
CPT/HCPCS: 77063; 77067